=== PATIENT | female | born 1945 | race Caucasian/White ===

== ENCOUNTER → 2021-05-20 13:48 | Outpatient (CLI) | payer BC, SELFPAY ==
--- NOTE | ~2021-05-20 | MMUS_ITS ---
EXAMINATION: MM diagnostic yesenia BI w kenji, US breast LT limited HISTORY: Palpable lump in the subareolar aspect of the left breast TECHNIQUE: Craniocaudal, mediolateral, and mediolateral oblique 3-D tomosynthesis images of the breas ts were performed and synthetic 2-D images were generated. CAD analysis was submitted and interpreted . High resolution limited left breast ultrasound was performed. COMPARISON: 10/05/2012, 01/06/2011 BREAST PARENCHYMAL COMPOSITION: The breasts are almost entirely fatty. FINDINGS: MAMMOGRAPHIC FINDINGS: Left breast: There is a 5 mm oval, circumscribed, mixed density mass in the subareolar aspect of the slightly upper, slightly outer breast. The mass demonstrates areas of equal and low-density. No suspi cious calcification or architectural distortion are identified. Right breast: There is no evidence of suspicious mass, calcification, or architectural distortion to suggest malignancy. There has been no suspicious interval change. ULTRASOUND: There is a 4 mm complex cystic and solid, circumscribed mass with no posterior features or internal v ascularity at the 2:00 location 2.5 cm from the nipple corresponding to the palpable abnormality of c oncern. IMPRESSION: 1. Left breast mass corresponding to the area of palpable abnormality which may reflect small area of trauma. 2. Follow-up targeted ultrasound in four weeks is recommended to evaluate for any interval change or resolution. If persistent, ultrasound-guided biopsy would be recommended. BI-RADS category 4, suspicious findings. Reviewed, dictated and finalized at [facility]. ASSISTANT IMPRESSION: 1. Left breast mass corresponding to the area of palpable abnormality which may reflect small area of trauma. 2. Follow-up targeted ultrasound in four weeks is recommended to evaluate for a ny interval change or resolution. If persistent, ultrasound-guided biopsy would be recommended. BI-RADS category 4, suspicious findings.
== END ==
PROVIDERS: PCP Internal Medicine; Visit Provider Internal Medicine
DX: R92.8 Other abnormal and inconclusive findings on diagnostic imaging of breast (principal); N60.02 Solitary cyst of left breast
CPT/HCPCS: 76642; 77062; 77066; G0279

== ENCOUNTER → 2021-07-01 12:57 | Outpatient (CLI) | payer BC, SELFPAY ==
--- NOTE | ~2021-07-01 | DEXA_ITS ---
Bone Density Report Name: KARLY HORN Age: 76 Sex: Female Ethnicity: Dionna Date of : 1945 Indication: postmenopausal; screening for osteoporosis; height loss; prior fracture; rheumatoid arthritis; Referring Provider: JH, RAVINDRA Hyatt Study: Bone densitometry was performed. Exam Date: July 01, 2021 Accession number: [id number] Bone Density: Region BMD T-score Z-score Classification AP Spine (L1-L4) 0.876 -1.6 1.0 Osteopenia Femoral Neck (Left) 0.525 -2.9 -0.7 Osteoporosis Total Hip (Left) 0.670 -2.2 -0.3 Osteopenia Femoral Neck (Right) 0.548 -2.7 -0.5 Osteoporosis Total Hip (Right) 0.652 -2.4 -0.5 Osteopenia Total Hip Mean 0.661 -2.3 -0.4 Osteopenia World Health Organization criteria for BMD impression classify patients as: Normal (T-score at or above -1.0), Osteopenia (T-score between -1.0 and -2.5), or Osteoporosis (T-score at or below -2.5). 10-year Fracture Risk: FRAX not reported because: Some T-score for Spine Total or Hip Total or Femoral Neck at or below -2.5 Clinical Information Provided by Patient: Has had a low trauma fracture Has rheumatoid arthritis Has used the following medications: Vitamin D, Calcium Patient maximum height was 62 No regular weight bearing exercise Does not regularly consume dairy products Drinks caffeinated beverages Number of children 0 Impression: The patient has established osteoporosis, based on the Left Femoral Neck T-score and the existence of a prior fracture. The patient has risk factors, including: previous fracture. Discussion: HIGH RISK OF FRACTURE. BONE DENSITY IS UNDESIRABLY LOW AT ONE OR MORE SKELETAL SITES, CONSISTENT WITH POSTMENOPAUSAL OSTEOPOROSIS. This patient's lowest T-score, in a patient who has previously fractured, meets the World Health Organization's (WHO) criteria for severe osteoporosis. In untreated patients, the risk of osteoporotic fracture increases approximately two-fold for each 1.0 SD decrease in T-score. Low bone density is not the only risk factor for fracture; also consider factors such as patient's age, frailty or poor health, risk of falling, risk of injury, previous osteoporotic fracture, family history of osteoporosis, cigarette smoking, low body weight, etc. Not everyone with low bone mineral density has osteoporosis; osteomalacia and other metabolic bone disorders should also be considered. Patients who have osteoporosis should be evaluated for specific diseases and conditions (secondary causes) that may cause or contribute to bone loss. The [place] [employer]ocr[employer] (AACE) and National Osteoporosis Foundation (NOF) recommend pharmacologic intervention for all postmenopausal women whose T-score is in this range. The patient should follow a healthful lifestyle (good nutrition with adequate calcium and v
== END ==
PROVIDERS: PCP Internal Medicine; Visit Provider Internal Medicine
DX: Z78.0 Asymptomatic menopausal state (principal); M85.88 Other specified disorders of bone density and structure, other site; M81.0 Age-related osteoporosis without current pathological fracture; M85.852 Other specified disorders of bone density and structure, left thigh; M85.851 Other specified disorders of bone density and structure, right thigh
CPT/HCPCS: 77080

== ENCOUNTER → 2021-08-11 09:34 | Outpatient (CLI) | payer BC, SELFPAY ==
--- NOTE | ~2021-08-11 | US_ITS ---
US breast LT limited DATE: 08/11/2021 10:21 INDICATION: Follow-up of left 2:00 breast mass TECHNIQUE: High-resolution ultrasound and color flow imaging targeted to 2:00 2.5 cm from nipple COMPARISON: 05/20/2021 diagnostic left mammogram and limited left breast ultrasound FINDINGS: 2.7 x 2.3 x 2.9 mm hypoechoic mass is noted superficially in the left breast at 2:00 2.5 cm from the nipple. The margins are mildly irregular this previously measured 3 x 3.6 mm. No internal v ascularity is noted. IMPRESSION: Interval mild decrease in size of 2:00 superficial lesion 2.5 cm from nipple since 022. Interval decrease in size with suggests likely benign process. Recommendation: 3 month follow-up targeted ultrasound at 2:00 2.5 cm from nipple BI-RADS Category 3: Probably benign. Reviewed, dictated and finalized at [facility]. Reviewed, dictated and finalized at [facility]. IMPRESSION: Interval mild decrease in size of 2:00 superficial lesion 2.5 cm fr om nipple since 05/20/2021. Interval decrease in size with suggests likely benig n process. Recommendation: 3 month follow-up targeted ultrasound at 2:00 2.5 cm from nippl e BI-RADS Category 3: Probably benign.
== END ==
PROVIDERS: PCP Internal Medicine
DX: N63.20 Unspecified lump in the left breast, unspecified quadrant (principal); R92.8 Other abnormal and inconclusive findings on diagnostic imaging of breast
CPT/HCPCS: 76642

== ENCOUNTER → 2021-11-08 14:26 | Outpatient (CLI) | payer BC, SELFPAY ==
--- NOTE | ~2021-11-08 | US_ITS ---
US breast LT limited 11/08/2021 14:42 Indication: Follow-up left breast mass Procedure: High-resolution Limited ultrasound of the left breast Comparison: Comparison to multiple prior studies sequentially, with oldest reviewed study dated 05/20. Findings: At 2:00, 2.5 cm from the nipple there is a hypoechoic mass measuring 2 x 2 x 1 mm without i nternal vascularity. No significant change to appearance compared with prior examinations allowing fo r differences of technique. Impression: 1: Stable appearance to 2 mm hypoechoic mass of the left breast at 2:00, 2.5 cm from the nipple, like ly benign. BI-RADS CATEGORY 3-PROBABLY BENIGN FINDING RECOMMENDATION: Six-month follow-up diagnostic bilateral mammogram and Limited left breast ultrasound recommended. Reviewed, dictated and finalized at location [facility]. Impression: 1: Stable appearance to 2 mm hypoechoic mass of the left breast at 2:00, 2.5 cm from the nipple, likely benign. BI-RADS CATEGORY 3-PROBABLY BENIGN FINDING RECOMMENDATION: Six-month follow-up diagnostic bilateral mammogram and Limited left breast ultrasound recommended.
== END ==
PROVIDERS: PCP Internal Medicine
DX: N63.20 Unspecified lump in the left breast, unspecified quadrant (principal); R92.8 Other abnormal and inconclusive findings on diagnostic imaging of breast
CPT/HCPCS: 76642

== ENCOUNTER 2022-10-08 14:21 | Emergency (ER) | payer BC, SELFPAY ==
[2022-10-08 14:35] VITALS: BP 119/69; PULSE 82; RESP 16; TEMP 36.9; O2SAT 98
--- NOTE | 2022-10-08 14:51 | ED.FEMALEGU ---
HPI - Female Genitourinary General Chief complaint: Urogenital-Female Stated complaint: UTI Source: patient, family and RN notes reviewed History of Present Illness HPI Narrative: 77 yo F presents to urgent care with complaints of dysuria since last night. Pt states she is having burning with urination, urinary frequency, and urinary urgency. Pt endorses some lower abdominal discomfort. Denies any fevers, vomiting, flank pain, chest pain, or SOB. Pt accompanied by [id number] who states pt has been admitted twice to the hospital for UTI, falls, and hallucinations. PT states she is trying to get on top of this UTI before it gets bad again. Related Data Home Medications Medication Instructions Recorded Confirmed amlodipine 10 mg-atorvastatin 20 1 tablet PO DAILY 05/15/19 mg tablet calcium carbonate 600 mg calcium 600 mg PO BID 05/15/19 (1,500 mg) tablet (Calcium) dexlansoprazole 60 mg 60 mg PO DAILY 05/15/19 capsule,biphase delayed release (Dexilant) ergocalciferol (vitamin D2) 1,250 50,000 unit PO MONTHLY 05/15/19 mcg (50,000 unit) capsule (Vitamin D2) ferrous sulfate 325 mg (65 mg 325 mg PO BID 05/15/19 iron) tablet furosemide 40 mg tablet 40 mg PO DAILY 05/15/19 gabapentin 300 mg capsule 300 mg PO TID 05/15/19 hydroxyzine HCl 50 mg tablet 50 mg PO TID 05/15/19 lidocaine 5 % topical patch 1 patch topical DAILY 05/15/19 (Lidoderm) losartan 100 mg tablet 100 mg PO DAILY 05/15/19 metoprolol succinate 25 mg 25 mg PO DAILY 05/15/19 tablet,extended release 24 hr paroxetine HCl 20 mg tablet 20 mg PO QAM 05/15/19 potassium chloride 20 mEq 60 meq PO DAILY 05/15/19 tablet,extended release(part/cryst) (Klor-Con M) topiramate 50 mg tablet 50 mg PO DAILY 05/15/19 warfarin 5 mg tablet (Coumadin) 5 mg PO DAILY 05/15/19 meclizine 25 mg tablet mg 10/08/22 Allergies Allergy/AdvReac Type Severity Reaction Status Date / Time dexamethasone Allergy Unknown Unknown Verified 10/08/22 14:32 methoxsalen Allergy Unknown Unknown Verified 10/08/22 14:32 Review of Systems Review of Systems: Pertinent positives and pertinent negatives per HPI. [facility] Past Medical History Medical History (Updated 10/08/22 @ 15:01 by Joan Gilbert, HENOK) Adhesive capsulitis of shoulder Back pain Carpal tunnel syndrome Depression Epistaxis Gallbladder disease GERD (gastroesophageal reflux disease) GI bleed Hyperlipidemia Hypertension Sinus problem Spinal stenosis Surgical History Surgical History H/O aortic valve replacement History of bunionectomy of both great toes Hx of cholecystectomy Family History Family History Other Carcinoma of colon Family history of arthritis Family history of cardiovascular disease Family history of malignant neoplasm of bone Family history of malignant neoplasm of esophagus Family history of malignant neoplasm of stomach Family history of primary malignant neoplasm of liver Hypertension Malignant neoplasm of prostate Social History Social History Smoking status: Never smoker Alcohol intake: never Comments At the time of my signature, I reviewed and agree with the nursing past medical, surgical, social, and family history. There is no relevant family history pertinent to the patient complaint. Exam Narrative: GENERAL: This is a well-nourished, well-developed patient, in no apparent distress. HEAD: normocephalic, atraumatic. EYES: Sclera clear/white. Vision is grossly intact. EARS: External ears normal, auditory canals clear and without drainage. Hearing grossly intact. NOSE: External nose normal with no obvious nasal discharge, nares without redness, no rhinorrhea. THROAT: Mucous membranes moist, posterior pharynx clear. NECK: Neck supple, non-tender without lymphadeno
== END 2022-10-08 15:04 | disposition home or self-care (01) ==
PROVIDERS: Emergency Provider Nurse Practitioner Family; PCP Internal Medicine
DX: N39.0 Urinary tract infection, site not specified (principal); K21.9 Gastro-esophageal reflux disease without esophagitis; E78.5 Hyperlipidemia, unspecified; I10 Essential (primary) hypertension; M48.00 Spinal stenosis, site unspecified; Z95.2 Presence of prosthetic heart valve
CPT/HCPCS: 81003; 87086; 99213; G0463

== ENCOUNTER 2023-09-11 19:05 | Emergency (ER) | payer BC, SELFPAY ==
[2023-09-11 19:21] VITALS: BP 167/64; PULSE 70; RESP 14; TEMP 37.2; O2SAT 96
--- NOTE | 2023-09-11 19:32 | ED.EPISTAXIS ---
HPI - Epistaxis General Chief complaint: Epistaxis Stated complaint: nose bleed, won't stop Time Seen by Provider: 09/11/23 19:23 Source: patient and RN notes reviewed Mode of arrival: ambulatory Limitations: no limitations History of Present Illness HPI Narrative: Patient presents today complaining of left-sided epistaxis times approximately 10-11 hours. She has been putting tissues of the left side of her nose to facilitate hemostasis and to remove clots, both of which have been unsuccessful. She wears nasal cannula oxygen continuously throughout the day and believes her nose may be dry due to this. Patient is on 5 mg Coumadin daily. Her last INR was 1 week ago and was 3.4. Her goal is 2.5-3.5. She has not have any strips today at home in which to check her INR. Related Data Home Medications Medication Instructions Recorded Confirmed amlodipine 10 mg-atorvastatin 20 1 tablet PO DAILY 05/15/19 09/11/23 mg tablet calcium carbonate (Calcium 600) 600 mg PO BID 05/15/19 09/11/23 ergocalciferol (vitamin D2) 1,250 50,000 unit PO MONTHLY 05/15/19 09/11/23 mcg (50,000 unit) capsule (Vitamin D2) ferrous sulfate 325 mg (65 mg 325 mg PO BID 05/15/19 09/11/23 iron) tablet furosemide 40 mg tablet 40 mg PO DAILY 05/15/19 09/11/23 gabapentin 300 mg capsule 300 mg PO TID 05/15/19 09/11/23 hydroxyzine HCl 50 mg tablet 50 mg PO TID 05/15/19 09/11/23 lidocaine 5 % topical patch 1 patch topical DAILY 05/15/19 09/11/23 (Lidoderm) losartan 100 mg tablet 100 mg PO DAILY 05/15/19 09/11/23 metoprolol succinate 25 mg 25 mg PO DAILY 05/15/19 09/11/23 tablet,extended release 24 hr paroxetine HCl 20 mg tablet 20 mg PO QAM 05/15/19 09/11/23 potassium chloride 20 mEq 60 meq PO DAILY 05/15/19 09/11/23 tablet,extended release(part/cryst) (Klor-Con M) topiramate 50 mg tablet 50 mg PO DAILY 05/15/19 09/11/23 Lipitor 1 tab-cap PO DAILY 10/08/22 09/11/23 aspirin 81 mg tablet 81 mg PO DAILY 10/08/22 09/11/23 cholecalciferol (vitamin D3) 1 tab-cap PO DAILY 10/08/22 09/11/23 meclizine 25 mg tablet 25 mg PO DIRECTED 10/08/22 09/11/23 warfarin 3 mg tablet 3 mg PO EVERY OTHER DAY 09/11/23 09/11/23 warfarin 4 mg tablet 4 mg PO EVERY OTHER DAY 09/11/23 09/11/23 Allergies Allergy/AdvReac Type Severity Reaction Status Date / Time dexamethasone Allergy Unknown Unknown Verified 09/11/23 19:08 methoxsalen Allergy Unknown Unknown Verified 09/11/23 19:08 Review of Systems Review of Systems: CONSTITUTIONAL: Denies body aches, fever, chills, or sweats. EYES: Denies visual changes, redness, or discharge. ENT: Denies rhinorrhea, congestion, sore throat, or otalgia.+ epistaxis CARDIOVASCULAR: Denies chest pain, palpitations, or edema. RESPIRATORY: Denies cough or dyspnea. GASTROINTESTINAL: Denies abdominal pain, nausea, vomiting, or diarrhea. GENITOURINARY: Denies dysuria or hematuria. SKIN: Denies rash, itching, or wounds. MUSCULOSKELETAL: Denies back pain, joint pain, or myalgia. NEUROLOGIC: Denies headache, numbness, tingling, or weakness. PSYCH: Denies depression or anxiety. [facility] Past Medical History Medical History Adhesive capsulitis of shoulder Back pain Carpal tunnel syndrome Depression Epistaxis Gallbladder disease GERD (gastroesophageal reflux disease) GI bleed Hyperlipidemia Hypertension Sinus problem Spinal stenosis Surgical History Surgical History H/O aortic valve replacement History of bunionectomy of both great toes Hx of cholecystectomy Family History Family History Other Carcinoma of colon Family history of arthritis Family history of cardiovascular disease Family history of malignant neoplasm of bone Family history of malignant neoplasm of esophagus Family history of malignant neoplasm of stomach Family history of pr
== END 2023-09-11 20:13 | disposition home or self-care (01) ==
PROVIDERS: Emergency Provider Nurse Practitioner; PCP Internal Medicine
DX: R04.0 Epistaxis (principal); K21.9 Gastro-esophageal reflux disease without esophagitis; E78.5 Hyperlipidemia, unspecified; I10 Essential (primary) hypertension; M48.00 Spinal stenosis, site unspecified; Z95.2 Presence of prosthetic heart valve; Z79.82 Long term (current) use of aspirin; Z79.01 Long term (current) use of anticoagulants
CPT/HCPCS: 30901; 99212; G0463

== ENCOUNTER 2024-08-22 12:33 | Outpatient (CLI) | payer BC, SELFPAY ==
--- NOTE | ~2024-08-22 | CT_ITS ---
CT head without contrast Indication: Status post fall Technique: Serial scans were obtained through the brain without the administration of contrast. Dose reduction technique was used on this scan by utilizing automated exposure control and iterative recon struction technique. The dose-length product (DLP) was 599.57 mGy-cm. Findings: There is no evidence of intracranial hemorrhage, mass lesion, or acute infarct. The ventri cles and subarachnoid spaces are dilated, consistent with mild atrophy. Low attenuation regions are seen within the periventricular white matter bilaterally, likely representing changes from chronic mi crovascular ischemic disease. There is no evidence of edema, mass effect or midline shift. Right sph enoid sinus disease noted. The remaining visualized paranasal sinuses and mastoid air cells are clear . Impression: No intracranial hemorrhage, mass, or acute infarct. Atrophy and chronic white matter changes, as above. Reviewed, dictated and finalized at [facility]. Impression: No intracranial hemorrhage, mass, or acute infarct. Atrophy and chronic white matter changes, as above.
== END 2024-08-22 12:34 | disposition home or self-care (01) ==
LOC: MICIMG 12:35
PROVIDERS: PCP Internal Medicine; Visit Provider Internal Medicine
DX: S00.03XA Contusion of scalp, initial encounter (principal); X58.XXXA Exposure to other specified factors, initial encounter; R93.0 Abnormal findings on diagnostic imaging of skull and head, not elsewhere classified
CPT/HCPCS: 70450

== ENCOUNTER 2025-04-18 20:55 | Emergency (ER) | payer BC, SELFPAY ==
[2025-04-18] VITALS (8 sets, daily range): BP systolic 138–162; BP diastolic 69–75; PULSE 67–72; RESP 14–20; TEMP 36.6; O2SAT 92–93
--- NOTE | ~2025-04-18 | XR_ITS ---
Examination: XR hip LT 2V w AP pelvis Clinical History: fall/PT DENIES ANY PAIN OR COMPLAINTS WITH HIP Comparison: None Technique: 2 views left hip with AP pelvis Findings/impression: 1. No fracture or dislocation left hip. 2. No pelvic fracture identified. Reviewed, dictated and finalized at location R. CULTURIST
--- NOTE | ~2025-04-18 | CT_ITS ---
EXAMINATION: CT brain wo con DATE: 04/18/2025 21:41 INDICATION: Status post fall. Trauma to the head. TECHNIQUE: Computed tomography (CT) of the head was performed without intravenous contrast. The dose-length product was 681.00 mGy-cm. Automated exposure control and iterative reconstruction technique were employed. COMPARISON: CT dated 08/22/2024 FINDINGS: Generalized atrophy. There are scattered severe periventricular and subcortical white matter changes, most likely related to small vessel ischemic disease (microangiopathy). There is intracranial atherosclerosis. No acute infarction, hemorrhage, mass or mass effect. Paranasal sinuses and mastoids are pneumatized. No depressed skull fractures. IMPRESSION: 1. No acute intracranial abnormality. Reviewed, dictated and finalized at location O. ORATE CONSULTANT
--- NOTE | ~2025-04-18 | CT_ITS ---
EXAMINATION: CT thoracic lumbar wo con DATE: 04/18/2025 21:42 INDICATION: Status post fall. Back pain. TECHNIQUE: Computed tomography (CT) of the thoracic and lumbar spine was performed without intravenous contrast. The dose-length product was 1453.79 mGy-cm. COMPARISON: None FINDINGS: Mild superior endplate compression fracture of T10, of uncertain age. Moderate multilevel thoracic and lumbar spondylosis. There is grade 1 degenerative spondylolisthesis at L4-5 normal thoracic kyphosis. There is ascending thoracic aortic aneurysm, incompletely visualized. Ectasia extends in to the aortic arch and descending thoracic aorta. Cardiomegaly. There is moderate multilevel facet degenerative change of the lumbar spine. Nonobstructing left nephrolithiasis. IMPRESSION: 1. Age-indeterminate mild superior endplate T10 compression fracture. 2: Incompletely visualized aneurysm of the ascending thoracic aorta. 3: Nonobstructing left nephrolithiasis. 4: Cardiomegaly.. Reviewed, dictated and finalized at location O. ER POT PRESS OPERATOR
--- NOTE | 2025-04-18 21:13 | ED.FALL ---
HPI - Fall General Chief Complaint: Fall Stated Complaint: FALL Time Seen by Provider: 04/18/25 21:11 Source: patient and family Mode of arrival: ambulatory Limitations: no limitations History of Present Illness HPI Narrative: Patient is an 79-year-old female who took a fall yesterday and has been dizzy lately. The patient presented to another facility for workup but waited 8 hours and did workup but never saw the doctor. They presented me with all the records and I reviewed the records and specifically there was a T10 fracture compression variety and a UTI amongst the tests and they have done without treatment. Patient has lower back pain after the fall. Patient is on Coumadin for a metallic valve. An extensive workup was done at the other facility and those records are unable to be obtained tonight. I will just repeat what is needed for positivity issues and values. MD complaint: fall Onset (ago): week(s) (3-4 weeks of dizziness and a fall yesterday with possible other falls) Fall from: standing Fall witnessed: no Place fall occurred: home Loss of consciousness: none Prolonged down time: no Symptoms prior to fall: dizziness Context: tripped/slipped Location of injury: back (Mid to lower back) Severity: moderate Severity scale (1-10): 4 Quality: sharp and throbbing Associated symptoms (after fall): denies Related Data Home Medications ?Medication ?Instructions ?Recorded ?Confirmed ?Last Taken ?Type amlodipine 10 mg-atorvastatin 20 1 tablet PO DAILY 05/15/19 09/11/23 Unknown History mg tablet calcium carbonate (Calcium 600) 600 mg PO BID 05/15/19 09/11/23 Unknown History ergocalciferol (vitamin D2) 1,250 50,000 unit PO MONTHLY 05/15/19 09/11/23 Unknown History mcg (50,000 unit) capsule (Vitamin D2) ferrous sulfate 325 mg (65 mg 325 mg PO BID 05/15/19 09/11/23 Unknown History iron) tablet furosemide 40 mg tablet 40 mg PO DAILY 05/15/19 09/11/23 Unknown History gabapentin 300 mg capsule 300 mg PO TID 05/15/19 09/11/23 Unknown History hydroxyzine HCl 50 mg tablet 50 mg PO TID 05/15/19 09/11/23 Unknown History lidocaine 5 % topical patch 1 patch topical DAILY 05/15/19 09/11/23 Unknown History (Lidoderm) losartan 100 mg tablet 100 mg PO DAILY 05/15/19 09/11/23 Unknown History metoprolol succinate 25 mg 25 mg PO DAILY 05/15/19 09/11/23 Unknown History tablet,extended release 24 hr paroxetine HCl 20 mg tablet 20 mg PO QAM 05/15/19 09/11/23 Unknown History potassium chloride 20 mEq 60 meq PO DAILY 05/15/19 09/11/23 Unknown History tablet,extended release(part/cryst) (Klor-Con M) topiramate 50 mg tablet 50 mg PO DAILY 05/15/19 09/11/23 Unknown History Lipitor 1 tab-cap PO DAILY 10/08/22 09/11/23 Unknown History aspirin 81 mg tablet 81 mg PO DAILY 10/08/22 09/11/23 Unknown History cholecalciferol (vitamin D3) 1 tab-cap PO DAILY 10/08/22 09/11/23 Unknown History meclizine 25 mg tablet 25 mg PO DIRECTED 10/08/22 09/11/23 Unknown History warfarin 3 mg tablet 3 mg PO EVERY OTHER DAY 09/11/23 09/11/23 Unknown History warfarin 4 mg tablet 4 mg PO EVERY OTHER DAY 09/11/23 09/11/23 Unknown History Allergies Allergy/AdvReac Type Severity Reaction Status Date / Time dexamethasone Allergy Unknown Unknown Verified 04/18/25 21:51 hydrochlorothiazide Allergy Unknown Unknown Verified 04/18/25 23:51 methoxsalen Allergy Unknown Unknown Verified 04/18/25 21:51 triamterene Allergy Hives Verified 04/18/25 23:51 Review of Systems Review of Systems: All systems reviewed & are unremarkable except as noted in HPI and below Constitutional: Constitutional: Reports no additional constitutional complaints Eyes: Eyes: Reports no additional eye complaints ENT: Reports system reviewed and no additional complaints, except as documented Cardiovascular: Cardiovascular: Reports no additional cardiovascular complaints Respiratory: Respiratory: Reports no additional respiratory complaints Gastrointestinal: Gastrointestinal: Reports no additional gastrointestinal complaints Genitourinary: Genitourinary: Reports no additional female genitourinary complaints Musculoskeletal: Musculoskeletal: Reports no additional musculoskeletal complaints Integumentary/Breasts: Skin/Breast: Reports system reviewed and no additional complaints, except as docu Neurologic: Reports system reviewed and no additional complaints, except as documented Psychiatric: Psychiatric: Reports no additional psychiatric complaints Endocrine: Endocrine: Reports no additional endocrine complaints Hematologic/Lymphatic: Hematologic/Lymphatic: Reports no additional hematologic/lymphatic complaints Allergic/Immunologic: Allergic/Immunologic: Reports no additional allergic/immunologic complaints [facility] Past Medical History Medical History Adhesive capsulitis of shoulder Depression Back pain Spinal stenosis Gallbladder disease GERD (gastroesophageal reflux disease) GI bleed Hyperlipidemia Hypertension Carpal tunnel syndrome Sinus problem Epistaxis Surgical History Surgical History History of bunionectomy of both great toes Hx of cholecystectomy H/O aortic valve replacement Family History Family History Other Carcinoma of colon Family history of arthritis Family history of cardiovascular disease Family history of malignant neoplasm of bone Family history of malignant neoplasm of esophagus Family history of malignant neoplasm of stomach Family history of primary malignant neoplasm of liver Hypertension Malignant neoplasm of prostate Social History Social History Smoking status: Never smoker Alcohol intake: never Exam Const: General: healthy appearing Nutritional Appearance: well nourished Orientation/consciousness: patient oriented x3 Limitations: other limitations (Baseline early dementia) HENMT: Head: normal to inspection Ears: external ears normal Face/Nose/Sinus: Normal external nose present Eyes: Conjunctivae: conjunctivae normal Pupils: Equal, round and reactive pupils present EOM: EOMs intact bilaterally Neck: Neck: normal visual inspection, no lymphadenopathy and no meningeal signs Chest: Chest palpation & inspection: normal inspection of the chest and normal inspection of the chest Resp: Effort & Inspection: normal respiratory effort and not labored Auscultation: clear to auscultation bilaterally and no crackles Cardio: Rate: regular rate Rhythm: regular rhythm Heart sounds: no murmurs GI: Inspection: non-distended GI Palp: Yes Soft to palpation and No Tenderness to palpation present (GI) Auscultation: normal bowel sounds : General: Yes bladder normal to palpation Back/Spine/Pelvis: Back: no CVA tenderness Skin: General skin exam: No normal color Rashes: no rashes Wounds: no wounds Other: Patient has multiple ecchymosis and specifically at the left lateral hip with tenderness Neuro: General: patient oriented x3, moves all extremities, no meningeal signs, no focal motor deficits and CN's II-XI intact bilaterally Cranial nerves: Yes Nystagmus not present Speech: normal speech Gait exam (Neuro): Normal gait present Other: Fast exam negative, NIH score is 0, GCS is 15 Extrem: General: normal to inspection, no clubbing, cyanosis or edema and no pedal edema Psych: Mental Status: mental status grossly normal Affect: normal affect Attitude: cooperative Course Vital Signs Vital signs: Vital Signs Temperature 36.6 C 04/18/25 20:55 Pulse Rate 72 04/18/25 20:55 Respiratory Rate 18 04/18/25 20:55 Blood Pressure 162/69 H 04/18/25 20:55 Pulse Oximetry 93 04/18/25 20:55 Oxygen Delivery Room Air 04/18/25 20:55 Temperature 36.6 C 04/19/25 01:24 Pulse Rate 65 04/19/25 01:24 Respiratory Rate 16 04/19/25 01:24 Blood Pressure 183/68 H 04/19/25 01:24 Pulse Oximetry 97 04/19/25 01:24 Oxygen Delivery Room Air 04/19/25 01:24 [facility] Narrative Medical decision making narrative: Patient is an 79-year-old female with a fall yesterday and correction dizziness and lightheadedness with recurrent falls. Multiple CT scans of the head and back and x-ray of the left hip. EKG. Labs. Differential Diagnosis Differential Diagnosis: Left hip fracture, brain bleed, lumbar fracture and thoracic fracture Lab Data [facility] Lab Attestation statement: I personally reviewed the patient's lab results. 04/18/25 21:56 04/18/25 21:56 Labs: Lab Results 04/18/25 Range/Units 21:56 WBC 5.0 (4.8-10.8) K/mm3 RBC 3.54 L (4.20-5.40) M/mm3 Hgb 10.7 L (11.7-13.8) g/dL Hct 33.9 L (35.0-42.0) % MCV 95.8 (78.0-102.0) fL MCH 30.2 (27.0-31.0) pg MCHC 31.6 L (32-36) g/dL RDW 13.7 (11.6-14.4) % Plt Count 142 L (150-420) K/mm3 MPV 10.2 (9.2-11.8) fl Immature Gran % (Auto) 0.2 H (0.0-0.0) % Neut % (Auto) 72.2 H (50.0-70.0) % Lymph % (Auto) 15.7 L (18.0-42.0) % Hughes % (Auto) 8.1 (2.0-11.0) % Eos % (Auto) 3.2 (1.0-6.0) % Baso % (Auto) 0.6 (0.0-1.0) % Lymph # (Auto) 0.79 L (1.10-4.50) K/mm3 Hughes # (Auto) 0.41 (0.10-0.90) K/mm3 Eos # (Auto) 0.16 (0.02-0.50) K/mm3 Baso # (Auto) 0.03 (0.00-0.10) K/mm3 Abs Immat Gran (auto) 0.01 H (0.00-0.00) K/mm3 Absolute Neuts (auto) 3.64 (1.70-7.20) K/mm3 Absolute Nucleated RBC 0.00 (0.00-0.00) K/mm3 Nucleated RBC % 0.0 (0-0.0) % Sodium 143 (137-145) mmol/L Potassium 3.6 (3.4-5.0) mmol/L Chloride 102 (98-107) mmol/L Carbon Dioxide 34 H (22-30) mmol/L Anion Gap 7 (4-12) mmol/L BUN 23 H D (7-17) mg/dL Creatinine 1.17 H (0.7-1.0) mg/dL Estim Creat Clear Calc Not Reportable Estimated GFR 45 L (59 - ) Glucose 124 H (65-110) mg/dL Calculated Osmolality 300 H (285-295) mOsm/kg Lactic Acid 1.3 (0.7-2.0) mmol/L Calcium 10.3 H (8.4-10.2) mg/dL Total Bilirubin 0.7 (0.2-1.3) mg/dL AST 35 (14-36) U/L ALT 19 (6-35) U/L Alkaline Phosphatase 105 (38-126) U/L Troponin I < 0.012 (0.000-0.034) ng/mL Total Protein 6.5 (6.3-8.2) g/dL Albumin 3.9 (3.5-5.1) g/dL Imaging Data Attestation: I personally reviewed and interpreted this imaging study as follows: Radiologist's impression: ITS Impressions Head CT 04/18/25 22:07 IMPRESSION: 1. No acute intracranial abnormality. Thoracic/Lumbar Spine CT 04/18/25 22:11 IMPRESSION: 1. Age-indeterminate mild superior endplate T10 compression fracture. 2: Incompletely visualized aneurysm of the ascending thoracic aorta. 3: Nonobstructing left nephrolithiasis. 4: Cardiomegaly.. Hip x-ray left is negative for acute process ECG Data EKG #1: Attestation: I personally reviewed and interpreted this ECG as follows: ECG completion date: 04/19/25 ECG completion time: 05:25 normal rate, sinus rhythm, PACs, non-specific ST changes, widened QRS, RBBB, normal QT and left axis Discharge Plan Discharge Clinical Impression: Acute UTI Compression fracture of thoracic vertebra Qualifiers: Encounter type: initial encounter Thoracic vertebra fracture level: T10 Qualified Code(s): S22.070A - Wedge compression fracture of T9-T10 vertebra, initial encounter for closed fracture Thoracic aortic aneurysm (TAA) Qualifiers: Thoracic aorta location: unspecified Presence of rupture: without rupture Qualified Code(s): I71.20 - Thoracic aortic aneurysm, without rupture, unspecified Patient Disposition: Home Condition: Stable Instructions: Vertebral Compression Fracture (ED), Vertebroplasty (DC) Additional Instructions: Please follow-up with the primary doctor in the next week. You will need a procedure called the kyphoplasty to repair this compression fracture of the thoracic spine. (I will call the family and remind them that there is a TAA that needs follow-up with the primary doctor and a short period of time and a vascular surgeon; also I will change the Cipro to not have a quinolone and a thoracic aneurysm and I will start Keflex as they did not excelsior picker the script at this point) Patient Language: Irish Prescriptions: New hydrocodone-acetaminophen 5-325 mg tablet 1 tablet PO Q8H PRN (Reason: pain) Qty: 20 0RF Rx Instructions: 1-2 tabs per dose cephalexin 500 mg capsule 500 mg PO BID 7 Days Qty: 14 0RF No Action meclizine 25 mg tablet 25 mg PO DIRECTED nitrofurantoin monohyd/m-cryst [Macrobid] 100 mg capsule 100 mg PO Q12H 5 Days Qty: 10 0RF Rx Instructions: must administer with a meal/food aspirin 81 mg Tablet 81 mg PO DAILY cholecalciferol (vitamin D3) 1 tab-cap PO DAILY Lipitor 1 tab-cap PO DAILY warfarin 4 mg tablet 4 mg PO EVERY OTHER DAY warfarin 3 mg tablet 3 mg PO EVERY OTHER DAY hydroxyzine HCl 50 mg Tablet 50 mg PO TID potassium chloride [Klor-Con M20] 20 mEq Tablet,Er Particles/Crystals 60 meq PO DAILY paroxetine HCl 20 mg Tablet 20 mg PO QAM lidocaine [Lidoderm] 5 % Adhesive Patch,Medicated 1 patch TOPICAL DAILY gabapentin 300 mg Capsule 300 mg PO TID losartan 100 mg Tablet 100 mg PO DAILY amlodipine-atorvastatin 10-20 mg Tablet 1 tablet PO DAILY topiramate 50 mg Tablet 50 mg PO DAILY calcium carbonate [Calcium 600] 600 mg calcium (1,500 mg) Tablet 600 mg PO BID furosemide 40 mg Tablet 40 mg PO DAILY ferrous sulfate 325 mg (65 mg iron) Tablet 325 mg PO BID metoprolol succinate 25 mg Tablet Extended Release 24 Hr 25 mg PO DAILY ergocalciferol (vitamin D2) [Vitamin D2] 1,250 mcg (50,000 unit) Capsule 50,000 unit PO MONTHLY tramadol 50 mg tablet 50 mg PO Q6H PRN (Reason: pain) Qty: 20 0RF Follow-up/Referrals: Paola,Jose Hyatt MD [Primary Care Provider] Time of Disposition: 01:07
--- NOTE | 2025-04-18 21:14 | ECG_ITS ---
Test Date: 2025-04-18 21:14:52 Measurements Intervals [place] Rate: 66 P: -67 NV: 177 QRS: 3 QRSD: 162 T: 36 QT: 431 QTc: 455 Interpretive Statements SINUS RHYTHM RIGHT BUNDLE BRANCH BLOCK BASELINE ARTIFACT- I, III, AVR, AVL, AVF ABNORMAL ECG No previous ECG available for comparison Electronically Signed On 04-19-2025 09:38:31 ADAPTED PHYSICAL EDUCATION TEACHER by Alexi Batista D.O.
--- NOTE | 2025-04-18 21:36 | PC.NURSE ---
PT RETURNED FROM IMAGING VIA STRETCHER PER TAPE RECORDER REPAIRER. SON AND DAUGHTER IN LAW AT BEDSIDE.
--- NOTE | 2025-04-18 21:50 | PC.NURSE ---
DEV MANAGER AT BEDSIDE FOR BLOOD DRAW AT THIS TIME.
[2025-04-18 22:06] LABS: Hematocrit 33.9 % (35.0-42.0); Hemoglobin 10.7 g/dL (11.7-13.8); Immature Granulocyte Percent A 0.2 % (0.0-0.0); Lymphocytes Absolute Auto 0.79 K/mm3 (1.10-4.50); Mean Corpuscular HGB Conc 31.6 g/dL (32-36); Mean Corpuscular Hemoglobin 30.2 pg (27.0-31.0); Mean Corpuscular Volume 95.8 fL (78.0-102.0); Nucleated Red Blood Cells Absolute Auto 0.00 K/mm3 (0.00-0.00); Nucleated Red Blood Cells Perc 0.0 % (0-0.0); Platelet Count Result 142 K/mm3 (150-420); Red Blood Count 3.54 M/mm3 (4.20-5.40); White Blood Count 5.0 K/mm3 (4.8-10.8)
[2025-04-18 22:18] LABS: Alanine Aminotransferase 19 U/L (6-35); Albumin Level 3.9 g/dL (3.5-5.1); Alkaline Phosphatase 105 U/L (38-126); Anion Gap 7 mmol/L (4-12); Aspartate Amino Transferase 35 U/L (14-36); Bilirubin,Total 0.7 mg/dL (0.2-1.3); Blood Urea Nitrogen 23 mg/dL (7-17); Calcium 10.3 mg/dL (8.4-10.2); Carbon Dioxide 34 mmol/L (22-30); Chloride 102 mmol/L (98-107); Estimated Glomerular Filt Rate 45; Glucose 124 mg/dL (65-110); Osmolality Calculated 300 mOsm/kg (285-295); Potassium 3.6 mmol/L (3.4-5.0); Sodium 143 mmol/L (137-145); Total Protein 6.5 g/dL (6.3-8.2)
[2025-04-18] MEDS: PIPERACILLIN/TAZOBACTAM SOD 3.375 GM in SODIUM CHLORIDE 0.9% IV 50 ML 100 ML IVPB (22:32)
[2025-04-18] MEDS: SODIUM CHLORIDE 0.9% IV 1,000 ML 999 ML IV CONT (22:32)
[2025-04-18 22:34] LABS: Troponin I < 0.012 ng/mL (0.000-0.034)
--- NOTE | 2025-04-18 22:40 | PC.NURSE ---
IV STARTED, MEDS HUNG PER ORDER, SEE JUN. LOAN OPERATIONS MANAGER AT BEDSIDE FOR NEW IMAGING ORDERS. BRUISING NOTED TO LEFT HIP.
--- NOTE | 2025-04-18 23:15 | PC.NURSE ---
PT UPDATE PROVIDED, FAMILY AT BEDSIDE. VSS. CALL LIGHT WITHIN REACH.
[2025-04-19] VITALS (11 sets, daily range): BP systolic 153–183; BP diastolic 67–69; PULSE 65–71; RESP 8–22; TEMP 36.6; O2SAT 86–99
--- NOTE | 2025-04-19 00:24 | PC.NURSE ---
PT SON UPDATED PER ERP. PT RESTING ON STRETCHER, CALL LIGHT WITHIN REACH.
--- NOTE | 2025-04-19 01:20 | PC.NURSE ---
IV REMOVED AND PT UPDATE PROVIDED INCLUDING RESULTS OF ALL IMAGING AND BLOOD WORK. PLAN OF CARE AGREED UPON BETWEEN ERP, PT AND HER FAMILY.
[2025-04-19] MEDS: HYDROcodone/acetaminophen (*CRX) 5-325 MG TABLET 1 TAB PO (01:42)
--- NOTE | 2025-04-19 06:51 | PC.NURSE ---
RN PHONED PT SON AT THIS TIME TO NOTIFY HIM OF INCIDENTAL FINDINGS RESULTED ON IMAGING OF THE THORACIC AORTIC ANEURYSM AND NEED FOR FOLLOW UP WITH VASCULAR. UNDERSTANDING VERBALIZED AND PT SON UPDATED ON CHANGE OF ANTIBIOTIC FROM CIPRO TO KEFLEX PER ERP AFTER ANEURYSM FINDINGS. REMINDED PT GIVEN DISC OF HER IMAGING AT DISCHARGE, MAY TAKE IT TO FOLLOW UP WITH VASCULAR AND SPINAL SPECIALIST.
--- NOTE | 2025-04-22 15:52 | PC.NURSE ---
PRELIMINARY BLOOD CULTURE RESULT; NO GROWTH IN 24 HOURS.
== END 2025-04-19 01:56 | disposition home or self-care (01) ==
PROVIDERS: Emergency Provider Emergency Medicine; PCP Internal Medicine
DX: S22.070A Wedge compression fracture of T9-T10 vertebra, initial encounter for closed fracture (principal); I71.20 Thoracic aortic aneurysm, without rupture, unspecified; N39.0 Urinary tract infection, site not specified; M54.50 Low back pain, unspecified; E78.5 Hyperlipidemia, unspecified; I10 Essential (primary) hypertension; W19.XXXA Unspecified fall, initial encounter
CPT/HCPCS: 36415; 70450; 72128; 72131; 73502; 80053; 83605; 84484; 85025; 93005; 96365; 99284; A9270; J2543; J7030